=== PATIENT | female | born 1930 | race Caucasian/White ===

== ENCOUNTER 2018-03-21 15:27 | Emergency (ER) | payer MEDICARE, BC ==
[~2018-03-21] VITALS: Ht 154.9 cm; Wt 68.0 kg
[~2018-03-21 15:27] MED LIST: ASPI-COR81 M1 PO; ATENOLOL25 MG PO; CALTRATE 600600 MG PO; CARAFATE1 G1 PO; CENTRUM SILVER1 TA1 PO; IRON65 MG PO; KLOR-CON M2020 MEQ PO; LASIX40 MG PO; LEVBID0.375 MG PO; LIBRAX 2.5/5 51 CAP PO; PRILOSEC20 MG PO; XANAX2 MG PO
[2018-03-21 15:28] VITALS: BP 181/87
[2018-03-21] MEDS ORDERED: NORCO 5-325 TA1 EACH PO (17:42)
== END 2018-03-21 17:46 | disposition home or self-care (01) ==
LOC: ED 15:27
DX: S32.039A Unspecified fracture of third lumbar vertebra, initial encounter for closed fracture (principal); Z88.8 Allergy status to other drugs, medicaments and biological substances; Z79.82 Long term (current) use of aspirin; Z79.899 Other long term (current) drug therapy; Z90.49 Acquired absence of other specified parts of digestive tract; V49.88XA Car occupant (driver) (passenger) injured in other specified transport accidents, initial encounter; Y93.89 Activity, other specified; Y92.488 Other paved roadways as the place of occurrence of the external cause; Y99.8 Other external cause status